=== PATIENT | male | born 1985 | race Caucasian/White ===

== ENCOUNTER → 2016-08-22 | Outpatient (CLI) | payer BC ==
[~2016-08-22] MED LIST: FLOMAX 0.40.4 MG/CAP PO; NO HOME MEDICATIONS; PERCOCET 325 MG1 TA2 PO; PREDNISONE10 MG PO; PRILOSEC10 MG PO
== END ==
LOC: COL.RAD 13:15
DX: N45.3 Epididymo-orchitis (principal)

== ENCOUNTER 2017-03-02 20:57 | Emergency (ER) | payer BC ==
[~2017-03-02] VITALS: Ht 175.3 cm; Wt 100.0 kg
[~2017-03-02 20:57] MED LIST changes: -PRILOSEC10 MG PO
[2017-03-02] MEDS ORDERED: PRILOSEC10 MG PO (22:00)
[2017-03-02 23:09] VITALS: BP 165/111; PULSE 106
== END 2017-03-02 23:11 | disposition home or self-care (01) ==
LOC: COL.ER 20:57
DX: R00.2 Palpitations (principal); R07.89 Other chest pain; K21.9 Gastro-esophageal reflux disease without esophagitis; Z82.49 Family history of ischemic heart disease and other diseases of the circulatory system
CPT/HCPCS: J7030

== ENCOUNTER 2017-08-09 21:00 | Emergency (ER) | payer BC, OTHER ==
[~2017-08-09] VITALS: Ht 175.3 cm; Wt 100.0 kg
[~2017-08-09 21:00] MED LIST changes: +PRILOSEC10 MG PO
[2017-08-09 21:01] VITALS: TEMP 99.3
[2017-08-09 21:49] LABS: BASO % 0.6 % (0.0-2.0); EOS # 0.1 (0.0-0.7); EOS % 1.7 % (0-4.0); GRAN # 3.8 (1.4-6.5); GRAN % 58.2 % (42.2-75.2); HEMATOCRIT 48.4 % (42.0-52.0); HEMOGLOBIN 16.8 g/dl (13.5-18.0); LYMPH # 1.7 (1.2-3.4); LYMPH % 26.8 % (20.0-51.0); MEAN CELL VOLUME 97 fl (80.0-100.0); MEAN CORPUSCULAR HEMOGLOBIN 34 pg (27.0-31.0); MEAN CORPUSCULAR HGB CONC 35 g/dl (33.0-37.0); MEAN PLATELET VOLUME 10.5 fl (7.4-10.4); MONO # 0.8 (0.1-0.6); MONO % 12.4 % (1.7-9.3); PLATELET COUNT 222 K/mm3 (130-400); RED BLOOD COUNT 4.97 M/mm3 (4.20-5.60); REDCELL DISTRIBUTION WIDTH-CV 13.3 % (11.5-14.5)
[2017-08-09 21:56] LABS: PARTIAL THROMBOPLASTIN TIME 28.6 SECONDS (26.0-37.0)
[2017-08-09 21:59] LABS: D-DIMER < 200.00 ng/mLDDu (200-230)
[2017-08-09 22:04] LABS: ALANINE AMINOTRANSFERASE 159 U/L (21-72); ALBUMIN 4.7 gm/dL (3.5-5.0); ALKALINE PHOSPHATASE 84 U/L (50-136); ANION GAP 10 mmol/L (7-16); AST,SGOT 92 U/L (15-37); BILIRUBIN,TOTAL 0.7 mg/dL (0.0-1.0); BLOOD UREA NITROGEN 15 mg/dL (9-20); CALCIUM 9.7 mg/dL (8.4-10.2); CARBON DIOXIDE 26 mmol/L (22-30); CHLORIDE 103 mmol/L (98-107); GLUCOSE 106 mg/dL (74-106); POTASSIUM 3.9 mmol/L (3.4-5.0); SODIUM 139 mmol/L (137-145); TOTAL PROTEIN 8.3 gm/dL (6.4-8.2)
[2017-08-09 22:16] LABS: TROPONIN-I < 0.012 ng/mL (0.000-0.034)
[2017-08-09] MEDS ORDERED: PRINIVIL10 MG PO (22:51)
[2017-08-09 23:15] VITALS: BP 172/107; PULSE 97
== END 2017-08-09 23:15 | disposition home or self-care (01) ==
LOC: COL.ER 21:00
PROVIDERS: Emergency Medicine
DX: R07.89 Other chest pain (principal); K21.9 Gastro-esophageal reflux disease without esophagitis; I10 Essential (primary) hypertension; F17.210 Nicotine dependence, cigarettes, uncomplicated
CPT/HCPCS: J2405; J7030